=== PATIENT | male | born 1985 | race Caucasian/White ===

== ENCOUNTER 2018-10-02 12:02 | Emergency (ER) | payer OTHER ==
[~2018-10-02] VITALS: Ht 167.6 cm; Wt 95.3 kg
[2018-10-02 12:02] VITALS: BP 144/88
== END 2018-10-02 12:38 | disposition home or self-care (01) ==
LOC: ER 12:07
DX: S60.412A Abrasion of right middle finger, initial encounter (principal); Y08.89XA Assault by other specified means, initial encounter; Y93.89 Activity, other specified; Y92.89 Other specified places as the place of occurrence of the external cause; Y99.8 Other external cause status